=== PATIENT | male | born 1975 | race Caucasian/White ===

== ENCOUNTER 2016-12-26 19:54 | Emergency (ER) | payer OTHER ==
[2016-12-26 20:17] VITALS: BP 120/61
--- NOTE | 2016-12-26 22:27 | UC ---
Jaymie Viramontes Thomas, scribed for Vanesa Rudolph DO on 12/26/16 at 2055 . Upper Extremity HPI - HPI Summary HPI Summary: The pt is a 41 y/o M presenting to [facility] [place] c/o a R hand laceration s/p cutting his hand on a tin can lid today at 19:00 when he was doing dishes. The can was filled with barrios beans. He reports that he is in need of a tetanus vaccination. He denies pain at this time, and the laceration is no longer needed at [facility]. Pt denies F/C/S. PMHx: depression. PSHx: vasectomy. SHx: former smoker, occasional alcohol use, no illicit drug use. 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 - History of Current Complaint Chief Complaint: UCUpperExtremity Stated Complaint: HAND INJURY Time Seen by Provider: 12/26/16 20:27 Hx Obtained From: Patient Onset/Duration: Sudden Onset, Lasting Hours - today at 19:00, Still Present Severity Initially: Mild Severity Currently: Mild Pain Intensity: 0 Pain Scale Used: 0-10 Numeric Location Of Pain: Is Discrete @ - ulnar aspect of dorsum Aggravating Factor(s): Movement Alleviating Factor(s): Compression Associated Signs And Symptoms: Positive: Negative Related History: Dominant Hand Right - Allergies/Home Medications Allergies/Adverse Reactions: Allergies Allergy/AdvReac Type Severity Reaction Status Date / Time No Known Allergies Allergy Verified 12/26/16 20:17 Home Medications: Home Medications Fluvoxamine (NF) [Luvox (NF)] 100 mg PO 12/26/16 [History] PMH/Surg Hx/FS Hx/Imm Hx Cardiovascular History: Other Other Cardiovascular History: neg:htn Neurological History: Other Other Neurological History: He denies a previous Hx of deep cuts to his hands Psychological History: Depression - Surgical History Surgical History: None - Family History Known Family History: Negative: Cardiac Disease, Hypertension, Diabetes - Social History Occupation: Employed Full-time Lives: With Family Alcohol Use: Occasionally Substance Use Type: None Smoking Status (MU): Former Smoker Review of Systems Constitutional: Negative Skin: Other - POS: laceration to his R hand Eyes: Negative ENT: Negative Respiratory: Negative Cardiovascular: Negative Gastrointestinal: Negative Genitourinary: Negative Motor: Negative Neurovascular: Negative Musculoskeletal: Negative Neurological: Negative Psychological: Negative All Other Systems Reviewed And Are Negative: Yes Physical Exam Triage Information Reviewed: Yes Appearance: Well-Appearing, No Pain Distress, Well-Nourished Vital Signs: Initial Vital Signs Temp 99.2 F 12/26/16 20:14 Pulse 73 12/26/16 20:14 Resp 18 12/26/16 20:14 BP 120/61 12/26/16 20:14 Pulse Ox 100 12/26/16 20:14 Vital Signs Reviewed: Yes Eyes: Positive: Conjunctiva Clear. Negative: Discharge ENT: Positive: Hearing grossly normal. Negative: Muffled/hoarse voice Neck exam: Normal Neck: Positive: Supple Respiratory: Positive: Lungs clear, Normal breath sounds, No respiratory distress, No accessory muscle use Cardiovascular: Positive: RRR, No Murmur Abdomen Description: Positive: Nontender, Soft. Negative: Distended, Guarding Musculoskeletal Exam: Normal Neurological Exam: Normal Psychological Exam: Normal Psychological: Positive: Age Appropriate Behavior Skin: Positive: Other - Warm, dry, normal color. There is a laceration to his right hand. Procedures - Laceration/Wound Repair 1 Location: upper extremity - cleaned and prepped in usual fashion with pressure irrigation Description: Linear Length, Depth and Shape: 1.5cm in length, 1mm deep, 1mm wide, linear Laceration/Wound Explored: clean, no foreign body removed Closure: Skin Adhesive, SteriStrips Upper Extremity Course/Dx - Course Course Of Treatment: ASSESSMENT AND PLAN: The pt is a 41 y/o M presenting to [facility] c/o a R hand laceration s/p cutting his hand on a tin can lid today at 19: 00 when he was doing dishes. The can was filled with barrios beans. He reports that he is in need of a tetanus vaccination. He denies pain at this time, and the laceration is no longer needed at [facility]. Pt denies F/C/S. PMHx: depression. PSHx: vasectomy. SHx: former smoker, occasional alcohol use, no illicit drug use. 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 In the [facility] course, a laceration repair was performed. Patient will be discharged home. Patient is agreeable to this plan. - Differential Dx/Diagnosis Provider Diagnoses: Laceration Discharge - Discharge Plan Condition: Stable Disposition: HOME Patient Education Materials: Laceration (ED), Tetanus (ED), Splint Care (ED) Forms: *Work Release Referrals: No Primary Care Phys,NOPCP [Medical Doctor] - Additional Instructions: FOLLOW-UP CARE: You should establish with a private physician for follow-up care. If you are unable to get a timely appointment, or if you are worsening, call us or return for re-evaluation. An additional resource available to assist in finding the appropriate physician for your health care needs is the [facility]. You may contact them by calling [phone]. The documentation as recorded by the Jaymie crystal Thomas accurately reflects the service I personally performed and the decisions made by me, Vanesa Rudolph DO.
== END 2016-12-26 21:17 | disposition home or self-care (01) ==
LOC: UCEAST 19:54
DX: S61.412A Laceration without foreign body of left hand, initial encounter (principal); F32.9 Major depressive disorder, single episode, unspecified; Z87.891 Personal history of nicotine dependence; W26.8XXA Contact with other sharp object(s), not elsewhere classified, initial encounter
CPT/HCPCS: 12001; 99211; G0463